=== PATIENT | female | born 1975 ===

== ENCOUNTER 2020-03-17 14:52 | Outpatient (REF) | payer OTHER, SELFPAY | END 2020-03-17 14:53 | disposition home or self-care (01) | LOC: HO.LAB 14:52 | PROVIDERS: Visit Provider Internal Medicine | DX: Z20.822 Contact with and (suspected) exposure to COVID-19 (principal) | CPT/HCPCS: 36415; C9803; U0003 ==

== ENCOUNTER 2020-06-15 15:27 | Outpatient (REF) | payer OTHER, SELFPAY ==
[2020-06-15 15:53] LABS: COVID-19 Test Negative (Negative)
== END 2020-06-15 15:28 | disposition home or self-care (01) ==
LOC: HO.LAB 15:27
PROVIDERS: Visit Provider Internal Medicine
DX: Z20.822 Contact with and (suspected) exposure to COVID-19 (principal)
CPT/HCPCS: 36415; 87635; C9803

== ENCOUNTER 2020-07-03 17:16 | Emergency (ER) | payer OTHER, SELFPAY ==
--- NOTE | ~2020-07-03 | XR_ITS ---
EXAMINATION: XR CHEST CLINICAL INFORMATION: Chest pain COMPARISON: None TECHNIQUE: 2 views of the chest were obtained. FINDINGS: The lungs are well expanded. There is no focal consolidation, edema, or effusion. No pneumothorax. The cardiomediastinal silhouette is within normal limits. No acute osseous abnormality. XR/XR chest 2V IMPRESSION: Clear lungs.
[2020-07-03 18:11] VITALS: BP 149/90; PULSE 78; RESP 20; TEMP 37.2; O2SAT 99; BMI 32.3
--- NOTE | 2020-07-03 18:20 | ECG_ITS ---
Test Reason : CHEST PAIN Blood Pressure : / mmHG Vent. Rate : 074 BPM Atrial Rate : 074 BPM P-R Int : 120 ms QRS Dur : 082 ms QT Int : 418 ms P-R-T Axes : 054 039 033 degrees QTc Int : 463 ms Normal sinus rhythm Possible Left atrial enlargement Borderline ECG When compared with ECG of 31-MAY-2017 21:13, No significant change was found Referred By: Generic ED Physician Electronically Signed By:NEDA EDOUARD MD
[2020-07-03 19:56] LABS: MANUAL DIFF FLAG NO
[2020-07-03 19:58] LABS: Basophils Absolute Auto 0.1 X10*3/uL (0.0-0.2); Basophils Percent Auto 0.4 % (0-2); Eosinophils Absolute Auto 1.2 X10*3/uL (0.0-0.4); Eosinophils Percent Auto 8.4 % (0-4); Hematocrit 34.4 % (37-47); Hemoglobin 10.2 g/dl (12.0-16.0); Imm Gran Abs Auto 0.04 X10*3/uL (0.00-0.03); Imm Gran Pct Auto 0.3 % (0.0-0.4); Lymphocytes Absolute Auto 2.3 X10*3/uL (1.2-4.9); Lymphocytes Percent Auto 15.8 % (20-40); Mean Corpuscular HGB Conc 29.7 g/dl (31.0-35.0); Mean Corpuscular Hemoglobin 21.2 pg (27.0-33.0); Mean Corpuscular Volume 71.5 fL (80-98); Mean Platelet Volume 10.9 fL (9.4-12.3); Monocytes Absolute Auto 0.8 X10*3/uL (0.1-1.2); Monocytes Percent Auto 5.3 % (2-11); Neutrophils Absolute Auto 10.4 X10*3/uL (2.0-8.3); Neutrophils Percent Auto 69.8 % (45-73); Platelet Count 327 X10*3/uL (160-400); Red Blood Count 4.81 X10*6/uL (4.20-5.50); Red Cell Distribution Width 18.1 % (11.0-16.0); White Blood Count 14.8 X10*3/uL (4.8-10.8)
[2020-07-03 20:26] LABS: Anion Gap 12 (12-20); Blood Urea Nitrogen 12 mg/dL (9-16); Calcium 8.6 mg/dL (8.4-10.2); Carbon Dioxide 25 mmol/L (22-29); Chloride 107 mmol/L (96-108); Creatinine Clr Calc Pharmacy 83.5; Estimated Glomerular Filt Rate > 60; Glucose Random 159 mg/dL (60-115); Potassium 4.3 mmol/L (3.3-5.1); Sodium 140 mmol/L (135-145)
[2020-07-03 20:34] LABS: Troponin-I High Sensitivity < 3.5 ng/L (<3.5-17.0)
--- NOTE | 2020-07-03 23:38 | ED.CHESTPAIN ---
HPI - Chest Pain General Chief Complaint: Chest Pain Stated Complaint: chest pain Time Seen by Provider: 07/03/20 22:25 Source: patient Mode of arrival: ambulatory Limitations: no limitations History of Present Illness HPI narrative: 44-year-old female who presents emergency department for evaluation of chest pain. The patient states that she got her 1st Pfizer vaccine for COVID-19 on 06/19/2020. She states that 3 days later on 06/22/2020 she developed chest pain. She describes the pain as an intermittent, burning sensation located in the center of her chest. She states that she has been getting this pain 3 times a week. She states that all last up to 30 minutes. She denied any radiation of the pain to her neck, jaw, back or arms. The patient states that she had a COVID-19 infection in July of 2019 and did not require hospitalization. She states however since having this infection, she has been feeling short of breath and having dyspnea on exertion, and this is not gotten better since her initial diagnosis. She denied fever, chills. She states she has a cough which is occasionally productive. She denies any pain in her lower extremities. She states she occasionally gets swelling in her lower extremities. The patient states she has a history of hypertension but her doctor stopped her medications. She states that yesterday when she is going to get her 2nd COVID vaccination she was told that she had hypertension. Related Data Allergies Allergy/AdvReac Type Severity Reaction Status Date / Time No Known Allergies Allergy Verified 07/03/20 18:11 [No Known Allergies*] Review of Systems Review of Systems: Yes all other systems are reviewed and are negative Neurologic: Reports Abnormal speech present [facility] Past Medical History [facility] Narrative: Patient has no chronic medical conditions that she takes medications for. She denies tobacco, alcohol and drug use. Medical History No known health problems Social History Social History Advance Directives: No Advance Directives Information Provided: No Patient : No Physical Exam Vital Signs: Vital Signs: Last Vital Signs Temp 98.9 F 07/03/20 18:11 Pulse 78 07/03/20 18:11 Resp 20 07/03/20 18:11 BP 149/90 H 07/03/20 18:11 Pulse Ox 99 07/03/20 18:11 Body Mass Index 32.3 Const: General: cooperative and healthy appearing Orientation/consciousness: oriented to person and oriented to place Limitations: no limitations HENMT: Head: Yes normal to inspection, Yes normocephalic and Yes atraumatic Ears: external ears normal General nose exam: Normal external nose present Face and sinus: Yes normal facial exam Mouth: Normal oral and palatal mucosa present Throat: Yes posterior oropharynx normal Eyes: Periorbital: periorbital findings normal Eyelids: Yes eyelids normal Conjunctivae: conjunctivae normal Sclerae: sclerae normal Corneas: corneas normal Pupils: Equal, round and reactive pupils present Direct Ophthalmoscopy: normal light reflex Neck: Neck: Yes full ROM, Yes no lymphadenopathy, Yes no meningeal signs, Yes trachea midline and Yes supple Chest: Chest palpation & inspection: normal inspection of the chest and tenderness sternum (Moderate) and costal cartilage (Left-sided) Resp: Effort & Inspection: normal respiratory effort and able to speak in complete sentences Auscultation: clear to auscultation bilaterally Cardio: Rate: regular rate Rhythm: regular rhythm Heart sounds: S1 normal heart sound present, S2 normal heart sound present and no murmurs GI: Inspection: Yes normal to inspection Palpation (GI): Soft to palpation, nontender, no guarding, not rigid and No hepatosplenomegaly present : General: Yes no CVA tenderness Back/Spine/Pelvis: Back: no CVA tenderness Cervical Spine: normal cervical lordosis Thoracic/Lumbar Spine: thoracic and lumbar spine normal to inspection Skin: Lesions: no lesions Rashes: no rashes Wounds: no wounds Neuro: General: oriented to person, oriented to place and no meningeal signs Cranial nerves: Yes CN's II-XII intact bilaterally and Yes Equal, round and reactive pupils present Speech: Abnormal speech present Motor exam (neuro): 5/5 motor strength present throughout Extrem: General: Yes normal to inspection and Yes full ROM Psych: Appearance: well kempt Mental Status: mental status grossly normal Speech and movement: Normal speech and movement present Affect: normal affect Attitude: cooperative Thought process: Normal thought process present Thought content: Normal thought content present Course Course Course Narrative: 44-year-old female who presents emergency department for evaluation of intermittent chest pain times approximately 2 weeks. The patient's vital signs revealed elevated blood pressure of 149/90 otherwise were unremarkable. The patient's physical examination revealed chest wall tenderness otherwise was unremarkable. Laboratory evaluation revealed mild anemia with an H&H of 10.2 and 34.4. The patient's urinalysis revealed too numerous to count red blood cells, 1-4 white blood cells and no bacteria. The patient's troponin was not elevated. Twelve EKG revealed no significant abnormalities. Patient's chest x-ray was normal. Patient's presentation is consistent with costochondritis. I did discuss this with her and she was advised to take Tylenol and ibuprofen for pain. She was advised to check her blood pressure at home on Friday, Friday and Friday for 2 weeks and discuss these readings with her PCP to see if she needs to be restarted on blood pressure medications. MDM - Chest Pain Lab Data Result diagrams: 07/03/20 19:27 07/03/20 19:27 Labs: Lab Results 07/03/20 07/03/20 07/03/20 Range/Units 19:27 19:27 19:27 WBC 14.8 H (4.8-10.8) X10*3/uL RBC 4.81 (4.20-5.50) X10*6/uL Hgb 10.2 L (12.0-16.0) g/dl Hct 34.4 L (37-47) % MCV 71.5 L (80-98) fL MCH 21.2 L (27.0-33.0) pg MCHC 29.7 L (31.0-35.0) g/dl RDW 18.1 H (11.0-16.0) % Plt Count 327 (160-400) X10*3/uL MPV 10.9 (9.4-12.3) fL Immature Gran % (Auto) 0.3 (0.0-0.4) % Neut % (Auto) 69.8 (45-73) % Lymph % (Auto) 15.8 L (20-40) % Craig % (Auto) 5.3 (2-11) % Eos % (Auto) 8.4 H (0-4) % Baso % (Auto) 0.4 (0-2) % Lymph # (Auto) 2.3 (1.2-4.9) X10*3/uL Craig # (Auto) 0.8 (0.1-1.2) X10*3/uL Eos # (Auto) 1.2 H (0.0-0.4) X10*3/uL Baso # (Auto) 0.1 (0.0-0.2) X10*3/uL Abs Immat Gran (auto) 0.04 H (0.00-0.03) X10*3/uL Absolute Neuts (auto) 10.4 H (2.0-8.3) X10*3/uL Absolute Nucleated RBC 0.000 (0.0-0.012) X10*3/uL Nucleated RBC % (auto) 0.0 (0.0-0.2) /100WBC Hold Blue Top SEE NOTE Sodium 140 (135-145) mmol/L Potassium 4.3 (3.3-5.1) mmol/L Chloride 107 (96-108) mmol/L Carbon Dioxide 25 (22-29) mmol/L Anion Gap 12 (12-20) BUN 12 (9-16) mg/dL Creatinine 0.73 (0.5-1.4) mg/dL Estim Creat Clear Calc 83.5 Estimated GFR > 60 Random Glucose 159 H (60-115) mg/dL Calcium 8.6 (8.4-10.2) mg/dL Troponin I High Sens (<3.5-17.0) ng/L 07/03/20 Range/Units 19:27 WBC (4.8-10.8) X10*3/uL RBC (4.20-5.50) X10*6/uL Hgb (12.0-16.0) g/dl Hct (37-47) % MCV (80-98) fL MCH (27.0-33.0) pg MCHC (31.0-35.0) g/dl RDW (11.0-16.0) % Plt Count (160-400) X10*3/uL MPV (9.4-12.3) fL Immature Gran % (Auto) (0.0-0.4) % Neut % (Auto) (45-73) % Lymph % (Auto) (20-40) % Craig % (Auto) (2-11) % Eos % (Auto) (0-4) % Baso % (Auto) (0-2) % Lymph # (Auto) (1.2-4.9) X10*3/uL Craig # (Auto) (0.1-1.2) X10*3/uL Eos # (Auto) (0.0-0.4) X10*3/uL Baso # (Auto) (0.0-0.2) X10*3/uL Abs Immat Gran (auto) (0.00-0.03) X10*3/uL Absolute Neuts (auto) (2.0-8.3) X10*3/uL Absolute Nucleated RBC (0.0-0.012) X10*3/uL Nucleated RBC % (auto) (0.0-0.2) /100WBC Hold Blue Top Sodium (135-145) mmol/L Potassium (3.3-5.1) mmol/L Chloride (96-108) mmol/L Carbon Dioxide (22-29) mmol/L Anion Gap (12-20) BUN (9-16) mg/dL Creatinine (0.5-1.4) mg/dL Estim Creat Clear Calc Estimated GFR Random Glucose (60-115) mg/dL Calcium (8.4-10.2) mg/dL Troponin I High Sens < 3.5 (<3.5-17.0) ng/L ECG Data ECG #1: Attestation: I personally reviewed and interpreted this ECG as follows: Interpretation: 1820: Normal sinus rhythm with a rate of 74, normal [place], QRS and QTC intervals, no ST segment elevation, no ST segment depression, no Q-waves, inverted T-wave in V1. Discharge Plan Discharge Clinical Impression: Acute costochondritis, Microcytic anemia Patient Disposition: Home, Self-Care Instructions: Costochondritis (ED), Iron Deficiency Anemia (ED) Additional Instructions: Your blood work was normal except for mild anemia. This is most likely caused by low iron. Take iron sulfate 325 mg, 1 pill 3 times a day for 3 months. This is an [id number] iron supplement and this should help improve your anemia. Your chest x-ray was normal. Your EKG was unremarkable. Take ibuprofen 200 mg pills, 3 pills every 6 hours as needed for pain. Take Tylenol (acetaminophen) 500 mg pills, 2 pills every 4 to 6 hours as needed for pain Follow-up with your doctor in 2 days. Please return to the emergency department if your symptoms get worse or if you develop any symptoms that are concerning to you.
== END 2020-07-04 00:45 | disposition home or self-care (01) ==
PROVIDERS: Emergency Provider Emergency Medicine Emergency Medical Services
DX: M94.0 Chondrocostal junction syndrome [Tietze] (principal); D50.9 Iron deficiency anemia, unspecified; I10 Essential (primary) hypertension; Z86.16 Personal history of COVID-19
CPT/HCPCS: 36415; 71046; 80048; 84484; 85025; 93005; 99283

== ENCOUNTER 2020-11-13 10:53 | Outpatient (REF) | payer OTHER, SELFPAY | END 2020-11-13 10:54 | disposition home or self-care (01) | LOC: HO.LAB 10:53 | PROVIDERS: Visit Provider Internal Medicine | DX: Z20.822 Contact with and (suspected) exposure to COVID-19 (principal) | CPT/HCPCS: C9803; U0003; U0005 ==

== ENCOUNTER 2021-08-05 09:31 | Emergency (ER) | payer OTHER, SELFPAY ==
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
[2021-08-05] MEDS: Acetaminophen 325 MG TABLET 650 MG PO (10:26)
[2021-08-05] MEDS: Lidocaine 4 % Patch ADH..PATCH 1 PATCH TRANSDERMA (10:30)
[2021-08-05] MEDS: Ketorolac Tromethamine 30 MG/ML VIAL IM (10:31)
[2021-08-05 10:32] VITALS: BP 158/85; PULSE 66; RESP 14; TEMP 36.7; O2SAT 98; BMI 36.3
== END 2021-08-05 10:44 | disposition home or self-care (01) ==
PROVIDERS: Emergency Provider Emergency Medicine Emergency Medical Services; PCP Internal Medicine
DX: M54.50 Low back pain, unspecified (principal); Z79.899 Other long term (current) drug therapy
CPT/HCPCS: 96372; 99283; 99284; J1885

== ENCOUNTER 2023-10-06 08:24 | Emergency (ER) | payer OTHER, SELFPAY ==
--- NOTE | ~2023-10-06 | XR_ITS ---
EXAMINATION: XR CHEST CLINICAL INFORMATION: Chest pressure, hypertension. COMPARISON: July 03, 2020 TECHNIQUE: 2 views of the chest were obtained. FINDINGS: There is no gross pneumothorax. Lung volumes are low. Heart size is normal. No pleural effusion. No focal consolidation to suggest pneumonia. XR/XR chest 2V IMPRESSION: Low lung volumes. No evidence of pneumonia. This study was presented today October 06, 2023 for interpretation. Stat results provided at this time as requested by referring provider.
--- NOTE | ~2023-10-06 | CT_ITS ---
EXAMINATION: CT HEAD WITHOUT CONTRAST CLINICAL INFORMATION: Hypertensive headache COMPARISON: Head CT from 03/19/2011 TECHNIQUE: Contiguous axial imaging was performed from the skull base to vertex without intravenous administration of contrast. This CT examination was performed using dose optimization techniques as appropriate, variously including the following: *Automated exposure control *Adjustment of mA and/or kV according to patient size (this includes techniques or standardized protocols for targeted exams where dose is matched to indication/reason for exam; i.e. extremities or head) *Use of iterative reconstruction technique DLP: 615 mGy-cm FINDINGS: The brain parenchyma has normal attenuation. The webster-white matter differentiation is well preserved. No evidence of an acute major vascular territory infarction. No intracranial hemorrhage, extra-axial fluid collection, focal mass effect or midline shift. The ventricles have normal size and configuration; no hydrocephalus. The brainstem and cerebellum have a normal appearance. The cerebellar tonsils are in normal position. The calvarium is intact. The visualized paranasal sinuses, mastoid air cells and middle ear cavities are well aerated. The orbits and globes are unremarkable. The temporomandibular joints are normal. CT/CT head/brain wo IV con IMPRESSION: No acute intracranial pathology.
[2023-10-06 08:30] VITALS: BP 170/71; PULSE 60; RESP 16; TEMP 37; O2SAT 98; BMI 35.1
--- NOTE | 2023-10-06 08:35 | ECG_ITS ---
Test Reason : chest pressure Blood Pressure : / mmHG Vent. Rate : 053 BPM Atrial Rate : 053 BPM P-R Int : 138 ms QRS Dur : 088 ms QT Int : 466 ms P-R-T Axes : 045 011 067 degrees QTc Int : 437 ms Sinus bradycardia Nonspecific T wave abnormality Abnormal ECG When compared with ECG of 03-JUL-2020 18:20, Heart rate has decreased Nonspecific T wave abnormality is now Present Referred By: Generic ED Physician Electronically Signed By:DO GONZALES
[2023-10-06 08:50] LABS: MANUAL DIFF FLAG NO
[2023-10-06 08:52] LABS: Basophils Percent Auto 0.4 % (0-2); Eosinophils Absolute Auto 0.3 X10*3/uL (0.0-0.4); Eosinophils Percent Auto 2.8 % (0-4); Hematocrit 42.6 % (37.0-47.0); Hemoglobin 14.3 g/dl (12.0-16.0); Imm Gran Abs Auto 0.03 X10*3/uL (0.00-0.03); Imm Gran Pct Auto 0.3 % (0.0-0.4); Lymphocytes Percent Auto 27.8 % (20-40); Mean Corpuscular HGB Conc 33.6 g/dl (31.0-35.0); Mean Corpuscular Hemoglobin 27.6 pg (27.0-33.0); Mean Corpuscular Volume 82.2 fL (80.0-98.0); Mean Platelet Volume 10.9 fL (9.4-12.3); Monocytes Absolute Auto 0.4 X10*3/uL (0.1-1.2); Monocytes Percent Auto 4.1 % (2-11); Neutrophils Percent Auto 64.6 % (45-73); Platelet Count 255 X10*3/uL (160-400); Red Blood Count 5.18 X10*6/uL (4.20-5.50); Red Cell Distribution Width 13.6 % (11.0-16.0); White Blood Count 10.8 X10*3/uL (4.8-10.8)
[2023-10-06 09:03] VITALS: BP 183/96; PULSE 53; RESP 16; O2SAT 98
[2023-10-06 09:03] LABS: Anion Gap 12 (12-20); Blood Urea Nitrogen 14 mg/dL (9-16); Calcium 9.3 mg/dL (8.4-10.2); Carbon Dioxide 26 mmol/L (22-29); Chloride 107 mmol/L (96-108); Creatinine Clr Calc Pharmacy 84.6; Estimated Glomerular Filt Rate > 60; Glucose Random 149 mg/dL (60-115); Sodium 141 mmol/L (135-145)
--- NOTE | 2023-10-06 09:05 | ED_ITS ---
HPI - General Adult General Chief complaint: Headache Stated complaint: HBP Time Seen by Provider: 10/06/23 09:05 Source: patient Mode of arrival: ambulatory Limitations: no limitations History of Present Illness ED Provider: edwar [place] narrative: Patient is a 47-year-old female with history of HTN, migraines presenting to the emergency department with complaint of severe headache since Friday as well as photophobia, nausea, and elevated blood pressure. States she has been on metoprolol for many years, denies any recent changes to this or other new medications. Took her medications this morning. Has tried ibuprofen with little relief. States the pain does feel typical of her regular migraines. Also reports some chest pressure and lightheadedness. Denies palpitations, dyspnea. Denies blurred vision, double vision or other visual changes. Related Data Previous Rx's ?Medication ?Instructions ?Recorded acetaminophen 500 mg tablet 500 mg PO Q6H PRN fever or pain 08/05/21 (Tylenol Extra Strength) #14 tabs cyclobenzaprine 5 mg tablet 5 mg PO Q8H PRN pain (scale score 08/05/21 7-10) 5 days #14 tabs lidocaine 5 % topical patch 1 patch topical DAILY PRN pain #30 08/05/21 (Lidoderm) ea naproxen 500 mg tablet 500 mg PO BID PRN pain 10 days #20 08/05/21 tabs amlodipine 5 mg tablet 5 mg PO DAILY #14 tabs 10/06/23 Allergies Allergy/AdvReac Type Severity Reaction Status Date / Time No Known Allergies Allergy Verified 10/06/23 08:31 [No Known Allergies*] Review of Systems 2 Review of Systems: As per HPI Yes all other systems are reviewed and are negative Constitutional: Constitutional: Reports as per HPI PENDING SALE TO [facility] Past Medical History Medical History No known health problems Social History Social History Smoked in Last 30 Days: No Substance Use Type: Caffiene Advance Directives: No Advance Directives Information Provided: Yes Physical Exam ED Vital Signs: Vital Signs - 24 hr 10/06/23 08:30 10/06/23 09:03 10/06/23 10:09 Temperature 98.6 F Pulse Rate 60 53 47 L Respiratory Rate 16 16 16 Blood Pressure 170/71 H 183/96 H 185/95 H Pulse Oximetry 98 98 97 Oxygen Delivery Method Room Air Room Air Room Air 10/06/23 10:09 10/06/23 11:24 10/06/23 12:26 Temperature 98.2 F Pulse Rate 57 54 Respiratory Rate 18 16 Blood Pressure 185/95 H 200/99 H 159/79 H Pulse Oximetry 100 100 Oxygen Delivery Method Room Air Room Air BMI result Body Mass Index 35.1 Vital signs have been reviewed and appear to be correct. Blood pressure hypertensive. Heart rate bradycardic. Respiratory rate normal. Temperature normal. Oxygen saturation normal. Const General: cooperative, healthy appearing and no acute distress Orientation/consciousness: oriented to person, oriented to place, oriented to time and patient oriented x3 Limitations: no limitations HENMT Head: Yes normocephalic and Yes atraumatic Ears: external ears normal General nose exam: Normal external nose present Face and sinus: Yes face symmetric Mouth: oropharynx normal and moist mucous membranes Throat: Yes uvula midline Eyes Pupils: Equal, round and reactive pupils present Neck Neck: Yes normal visual inspection, Yes no meningeal signs and Yes supple Resp Effort & Inspection: normal respiratory effort and able to speak in complete sentences Auscultation: clear to auscultation bilaterally Cardio Rate: regular rate Rhythm: regular rhythm Heart sounds: S1 normal heart sound present and S2 normal heart sound present GI Palpation (GI): Soft to palpation and nontender Auscultation: normoactive bowel sounds General: Yes no CVA tenderness Back/Spine/Pelvis Back: no CVA tenderness Skin General skin exam: elasticity normal and turgor normal Neuro General: oriented to person, oriented to place, oriented to time, patient oriented x3, gait normal, tone normal, moves all extremities, Normal light touch and pain sensation, no meningeal signs, no focal motor deficits, CN's II-XI intact bilaterally and deep tendon reflexes 2+ bilaterally Cranial nerves: Yes Equal, round and reactive pupils present Cognition (Neuro): normal cognition Motor exam (neuro): 5/5 motor strength present throughout, Pronator motor function not present, no tremor noted, no asterixis, Motor fasciculations not present, Normal motor muscle tone present throughout and Motor abnormalities not present Extrem General: Yes full ROM, Yes no pedal edema and Yes no calf tenderness Psych Mental Status: mental status grossly normal Affect: normal affect Thought process: Normal thought process present Medications Administered Discontinued Medications Generic Name Dose Route Start Last Admin Trade Name Varinder PRN Reason Stop Dose Admin Amlodipine Besylate 5 mg 10/06/23 09:43 10/06/23 10:09 Amlodipine Besylate 5 Mg Tablet PO 10/06/23 09:44 5 mg ONCE ONE Administration Protocol Diphenhydramine HCl 25 mg 10/06/23 10:35 10/06/23 10:53 Diphenhydramine Hcl 50 Mg/Ml Vial IVPUSH 10/06/23 10:36 25 mg ONCE ONE Administration Sodium Chloride 1,000 mls @ 999 mls/hr 10/06/23 10:45 10/06/23 10:53 Ns IV 10/06/23 11:45 999 mls/hr .Q1H1M ALEXEY Administration Ketorolac Tromethamine 15 mg 10/06/23 10:53 10/06/23 11:01 Ketorolac Tromethamine 15 Mg/Ml Vial IVPUSH 10/06/23 10:54 15 mg ONCE ONE Administration Metoclopramide HCl 10 mg 10/06/23 10:35 10/06/23 10:53 Metoclopramide Hcl 10 Mg/2 Ml Vial IVPUSH 10/06/23 10:36 10 mg ONCE ONE Administration Medical Decision Making Medical Decision Making [facility] Narrative: Patient is a 47-year-old female with history of HTN, migraines presenting to the emergency department with complaint of severe headache since Friday as well as photophobia, nausea, and elevated blood pressure. On exam patient is awake, A+Ox3, hypertensive, bradycardic, afebrile, normal neurological exam without focal deficits, physical exam findings as above. Given reported symptoms and physical exam findings, initial differential includes uncontrolled hypertension, ICH, migraine. Less likely ACS. Labs unremarkable, negative troponin. X-ray chest unremarkable. CT head notable for no evidence of ICH. My interpretation is in agreement with the radiologist's interpretation. Headache and blood pressure improved with medications given in the ED. Will discharge patient home on amlodipine in addition to her metoprolol, advised to follow up with PCP. Return precautions discussed at bedside. Patient verbalized understanding of and agreement with plan. Differential Diagnosis Differential Diagnoses: The differential diagnosis associated with the presentation includes as per [facility] Admission/Observation Consideration of admission/observation: Escalation of care including admission/observation considered Patient would have been admitted to the hospital had their work up had any findings where hospital admission was appropriate and their clinical presentation warranted hospital admission. Lab Data [facility] Lab Attestation statement: I reviewed the patient's lab results. as per [facility] 10/06/23 08:45 10/06/23 08:45 Labs: Lab Results 10/06/23 10/06/23 Range/Units 08:45 08:50 WBC 10.8 (4.8-10.8) X10*3/uL RBC 5.18 (4.20-5.50) X10*6/uL Hgb 14.3 (12.0-16.0) g/dl Hct 42.6 (37.0-47.0) % MCV 82.2 (80.0-98.0) fL MCH 27.6 (27.0-33.0) pg MCHC 33.6 (31.0-35.0) g/dl RDW 13.6 (11.0-16.0) % Plt Count 255 (160-400) X10*3/uL MPV 10.9 (9.4-12.3) fL Immature Gran % (Auto) 0.3 (0.0-0.4) % Neut % (Auto) 64.6 (45-73) % Lymph % (Auto) 27.8 (20-40) % [place] % (Auto) 4.1 (2-11) % Eos % (Auto) 2.8 (0-4) % Baso % (Auto) 0.4 (0-2) % Lymph # (Auto) 3.0 (1.2-4.9) X10*3/uL [place] # (Auto) 0.4 (0.1-1.2) X10*3/uL Eos # (Auto) 0.3 (0.0-0.4) X10*3/uL Baso # (Auto) 0.0 (0.0-0.2) X10*3/uL Abs Immat Gran (auto) 0.03 (0.00-0.03) X10*3/uL Absolute Neuts (auto) 7.0 (2.0-8.3) x10*3/uL Absolute Nucleated RBC 0.000 (0.0-0.012) X10*3/uL Nucleated RBC % (auto) 0.0 (0.0-0.2) /100WBC Sodium 141 (135-145) mmol/L Potassium 4.0 (3.3-5.1) mmol/L Chloride 107 (96-108) mmol/L Carbon Dioxide 26 (22-29) mmol/L Anion Gap 12 (12-20) BUN 14 (9-16) mg/dL Creatinine 0.73 (0.5-1.4) mg/dL Estim Creat Clear Calc 84.6 Estimated GFR > 60 Random Glucose 149 H (60-115) mg/dL Calcium 9.3 D (8.4-10.2) mg/dL Troponin I High Sens < 2.7 (<3.5-17.0) ng/L Independent Interpretation I performed an independent interpretation of an: Plain X-Ray and CT Scan Interpretation: X-ray chest unremarkable. CT head notable for no evidence of ICH. Radiology Impression Discussion of test interpretation with radiology: I have reviewed the radiologist's reading. Radiologist Impression: XR/XR chest 2V IMPRESSION: Low lung volumes. No evidence of pneumonia. This study was presented today October 06, 2023 for interpretation. Stat results provided at this time as requested by referring provider. CT/CT head/brain wo IV con IMPRESSION: No acute intracranial pathology. External Record Review External record reviewed: Inpatient record, Office record and Outpatient record Prescription Management I considered prescription management with: Other Discharge Plan Discharge Clinical Impression: Hypertension Patient Disposition: Home, Self-Care Instructions: Hypertension (ED) Additional Instructions: You were evaluated in the emergency department today for high blood pressure and headache. Your symptoms improved with medication in the ED. You are being prescribed a new medication for your blood pressure in addition to your metoprolol. Begin taking amlodipine daily and call your primary care provider to schedule a follow up appointment and to discuss this new medication. Continue to check your blood pressures at home. Return to the emergency department if you develop chest pain, difficulty breathing, severe headache, persistent vomiting, or any other concerning symptoms. Prescriptions: New amlodipine 5 mg tablet 5 mg PO DAILY Qty: 14 0RF No Action acetaminophen [Tylenol Extra Strength] 500 mg tablet 500 mg PO Q6H PRN (Reason: fever or pain) Qty: 14 0RF lidocaine [Lidoderm] 5 % adhesive patch,medicated 1 patch topical DAILY MDD remove after 12 hours PRN (Reason: pain) Qty: 30 0RF Rx Instructions: leave on most painful area for up to 12 hrs naproxen 500 mg tablet 500 mg PO BID PRN (Reason: pain) 10 Days Qty: 20 0RF cyclobenzaprine 5 mg tablet 5 mg PO Q8H PRN (Reason: pain (scale score 7-10)) 5 Days Qty: 14 0RF Print Language: Taiwanese
[2023-10-06 09:39] LABS: Troponin-I High Sensitivity < 2.7 ng/L (<3.5-17.0)
[2023-10-06 10:09] VITALS: BP 185/95; PULSE 47; RESP 16; O2SAT 97
[2023-10-06] MEDS: amLODIPine Besylate 5 MG TABLET PO (10:09)
[2023-10-06] MEDS: diphenhydrAMINE HCL 50 MG/ML VIAL 25 MG IVPUSH (10:53)
[2023-10-06] MEDS: 0.9 % Sodium Chloride 1,000 ML 999 ML IV (10:53)
[2023-10-06] MEDS: Metoclopramide HCl 10 MG/2 ML VIAL IVPUSH (10:53)
[2023-10-06] MEDS: Ketorolac Tromethamine 15 MG/ML VIAL IVPUSH (11:01)
[2023-10-06 11:24] VITALS: BP 200/99; PULSE 57; RESP 18; TEMP 36.8; O2SAT 100
--- NOTE | 2023-10-06 11:27 | MHC.EDTECH ---
This tech went to introduce herself, check pt positioning, checked vital signs, call marie within reach, Pt BP elevated, RN informed.
--- NOTE | 2023-10-06 11:27 | PC.NURSE ---
Assumed care of this patient at 1100, Provider Nadine made aware of patient's high bp, plan to wait to see if headache pain subsides.
[2023-10-06 12:26] VITALS: BP 159/79; PULSE 54; RESP 16; O2SAT 100
[2023-10-06 13:08] VITALS: BP 159/79; PULSE 54; RESP 16; TEMP 36.7; O2SAT 100
== END 2023-10-06 12:50 | disposition home or self-care (01) ==
PROVIDERS: Registered Nurse Emergency; Emergency Provider Emergency Medicine; PCP Internal Medicine
DX: I10 Essential (primary) hypertension (principal); R51.9 Headache, unspecified; Z79.899 Other long term (current) drug therapy
CPT/HCPCS: 36415; 70450; 71046; 80048; 84484; 85025; 93005; 96374; 96375; 99284; 99285; J1200; J1885; J2765